=== PATIENT | female | born 1945 | race Caucasian/White ===

== ENCOUNTER 2018-07-08 09:58 | Day surgery (SDC) | payer OTHER, BC ==
[2018-06-11 12:29] VITALS: BMI 31.6
--- NOTE | 2018-06-23 11:08 | HP ---
DATE OF ADMISSION: 07/08/2018 DATE OF DICTATION: 06/02/2018 REASON FOR ADMISSION: Biliary disease. BRIEF HISTORY: This is a 72-year-old female who presented to the office for evaluation a cholecystectomy. What prompted her workup was a routine blood panel, done due to her other medical co-morbidities, by her primary care physician, and on that panel she was noted to have a mildly elevated AST and an ALT (AST 78/ALT 74). Given that abnormality, she underwent an ultrasound, performed at [facility]. The ultrasound demonstrated a gallstone, fatty liver, and a focal mass-like density in the fundus of the gallbladder that was 1.5 cm in size. It could not be determined whether this was gallbladder related or liver related. She then underwent a CT for the ultrasound finding. The CT demonstrated a phrygian cap, gallstones, no other abnormalities in the liver to be noted. She is noted to have diffuse fatty infiltration of the liver, however. She is also noted to have a lipoma in the anterior abdominal wall, which was a nonspecific finding seen on ultrasound of the abdominal wall. No other significant findings on CAT scan. Patient has no acute history of biliary disease. She has a chronic history of greater than 10 years of having bilateral costal margin pain with radiation to the back. She has had no nausea, no vomiting, no change in bowel habits. She has chronic peptic ulcer disease, reflux, and so forth. PAST MEDICAL HISTORY: Significant for peptic ulcer disease, reflux, coronary artery disease, hypertension, stroke. She is diabetic. PAST SURGICAL HISTORY: The patient denies abdominal surgeries. ALLERGIES: To SULFA. MEDICATIONS: Crestor, Trulicity, escitalopram, Lexapro. SOCIAL HISTORY: Patient does not smoke. She does not drink. PHYSICAL EXAMINATION: HEENT: Unremarkable. Abdomen: Obese, soft, nontender, nondistended. She has tenderness along both costal margins equally. She has no CVA tenderness. IMPRESSION/PLAN: Cholelithiasis, questionable finding in the wall of the gallbladder, bilateral subcostal pain: This is a 72-year-old female who presented to the office for further evaluation of her biliary disease. I think the finding of gallstones is an incidental finding and not related to the cause of her subcostal margin pain. The abnormality noted on the LFTs I also feel is not entirely related to the biliary disease, however, cannot be entirely ruled out. Given the fact that she is on statins and certain medications, I think the mild bump in the LFTs could be related to the fatty liver or even her medications. At this point, I would recommend repeating the LFTs. If they are normal, she can then proceed with surgical intervention for cholecystectomy; if they are abnormal, they should be further evaluated by her primary care physician or the spreader operator automatic. With regard to her gallbladder, since I think the finding of gallstones is incidental and she is not symptomatic, I would typically not recommend a cholecystectomy in this setting; however, she is noted to have a mass-like density in the fundus of the gallbladder and the etiology of this cannot be entirely determined; therefore, she should undergo a cholecystectomy for this morphologic finding. There is a small chance that this could be a carcinoma, even though unlikely. I spent 1 hour plus discussing this with the patient and her to ensure that they understand the indication for surgery ultimately of the gallbladder is not related to the mild bump in her transaminases but really because of the morphologic finding on ultrasound. The indications, alternatives, and complications of this procedure have been discussed at length, questions have been answered. Will plan to obtain written consent the day of surgery. Shay HUDDLESTON [id number] cc: [place] [address]
[~2018-07-08 09:58] MED LIST: ALBUTEROL SO4 8 GM HFA INHALER IH PRN; ONDANSETRON 4 MG/2 ML VIAL IVPUSH PRN; morphine SULFATE 4 MG/ML VIAL IVPB PRN
[2018-07-08] MEDS ORDERED: ESCITALOPRAM OXALATE 10 MG TABLET (FP) PO SCH (10:00)
[2018-07-08] MEDS ORDERED: ROCURONIUM BROMIDE 50 MG/5 ML VIAL ONE ×2 (11:27→11:44)
[2018-07-08] MEDS ORDERED: MIDAZOLAM HCL 2 MG/2 ML SINGLE DOSE VIAL ONE (11:27)
[2018-07-08] MEDS ORDERED: LIDOCAINE HCL/PF 2% SDV 5ML VIAL ONE (11:27)
[2018-07-08] MEDS ORDERED: PROPOFOL 20 ML ONE (11:27)
[2018-07-08] MEDS ORDERED: ePHEDrine SULFATE 50 MG/1 ML AMPULE ONE (11:46)
[2018-07-08] MEDS ORDERED: DEXAMETHASONE SOD PHOSPHATE 4 MG/1 ML VIAL ONE (11:48)
[2018-07-08] MEDS ORDERED: ERTAPENEM SODIUM 1 GM VIAL ONE (11:56)
[2018-07-08] MEDS ORDERED: NEOSTIGMINE METHYLSULFATE 0.5 MG/ML - 10 ML MDV ONE ×2 (12:25→13:01)
[2018-07-08] MEDS ORDERED: GLYCOPYRROLATE 0.2 MG/1 ML VIAL ONE (12:26)
[2018-07-08] MEDS ORDERED: ONDANSETRON 4 MG/2 ML VIAL ONE (13:24)
[2018-07-08] MEDS ORDERED: LACTATED RINGERS SOLUTION 1,000 ML IV SCH (13:30)
[2018-07-08] MEDS ORDERED: ALBUTEROL SO4 2.5/IPRATROPIUM 0.5 INH SOL 3 ML VIAL.NEB. NEB ONE (13:31)
[2018-07-08] MEDS ORDERED: IPRATROPIUM BR 0.02% 0.5 MG/2.5 ML VIAL.NEB. NEB ONE (13:33)
[2018-07-08] MEDS ORDERED: ALBUTEROL SO4 0.083% IH SOL 2.5 MG/3 ML VIAL.NEB. NEB ONE (13:34)
[2018-07-08] MEDS: HYDROCHLOROTHIAZIDE 25 MG TABLET (FP) PO SCH (16:37)
[2018-07-08] MEDS: D5-1/2NS+20 MEQ KCL - 20 MEQ/1,000 ML INFUS.BAG IV SCH (16:37)
[2018-07-08] MEDS: PANTOPRAZOLE 40 MG TABLET (FP) PO SCH (16:38)
[2018-07-08] MEDS: oxyCODONE HCL 5 MG TABLET PO PRN (16:51)
[2018-07-08] MEDS ORDERED: ZOLPIDEM TARTRATE 5 MG TABLET PO PRN (22:00)
[2018-07-08] MEDS ORDERED: PATIENT'S OWN MEDICATION (NON-FORMULARY) (Zolpidem Tartrate [Ambien] 10 MG) PO SCH (22:00)
[2018-07-09] MEDS: ACETAMINOPHEN 325 MG TABLET (FP) PO PRN ×2 (00:09→05:06)
[2018-07-09] MEDS: oxyCODONE HCL 5 MG TABLET PO PRN ×2 (00:10→07:12)
[2018-07-09] MEDS ORDERED: ENOXAPARIN NA (PORCINE) 40 MG/0.4 ML DISP.SYRIN SQ SCH (06:00)
[2018-07-09] MEDS: D5-1/2NS+20 MEQ KCL - 20 MEQ/1,000 ML INFUS.BAG IV SCH (09:43)
[2018-07-09] MEDS: HYDROCHLOROTHIAZIDE 25 MG TABLET (FP) PO SCH ×2 (09:44→09:50)
[2018-07-09] MEDS: PANTOPRAZOLE 40 MG TABLET (FP) PO SCH (09:45)
[2018-07-09] MEDS: LISINOPRIL 20 MG TABLET (FP) PO SCH ×2 (09:45→09:55)
[2018-07-09] MEDS ORDERED: ESCITALOPRAM OXALATE 10 MG TABLET (FP) PO SCH (10:00)
[2018-07-09] MEDS ORDERED: ROSUVASTATIN CA 20 MG TABLET (FP) PO SCH (10:00)
[2018-07-09 15:03] VITALS: BP 102/43; PULSE 61; TEMP 98.2
--- NOTE | 2018-07-09 15:22 | HP ---
DATE OF ADMISSION: 07/08/2018 REASON FOR ADMISSION: Patient admitted today for a laparoscopic cholecystectomy. PAST MEDICAL HISTORY: Significant for peptic ulcer disease, reflux, coronary artery disease, hypertension, stroke, and diabetes. PAST SURGICAL HISTORY: None. ALLERGIES: To SULFA. SOCIAL HISTORY: Patient does not smoke, nor drink. MEDICATIONS: Crestor, Trulicity, Lexapro. PHYSICAL EXAMINATION: HEENT: Unremarkable Abdomen: Obese, soft, nontender, nondistended. IMPRESSION/PLAN: Cholelithiasis. Patient is here today for laparoscopic cholecystectomy. History of bilateral subcostal pain essentially unchanged. Patient will have nothing to do for this at this point. The indications, alternatives, and complications of the procedure were discussed. Questions answered. We will plan to obtain written consent, as well. Shay HUDDLESTON [id number] cc: Ladarius Mensah MD, Vladimir Meyers MD
--- NOTE | 2018-07-13 13:44 | OP ---
DATE OF OPERATION: 07/08/2018 PREOPERATIVE DIAGNOSIS: Abnormal gallbladder, cholelithiasis. POSTOPERATIVE DIAGNOSIS: Abnormal gallbladder, cholelithiasis. PROCEDURE: Laparoscopic cholecystectomy, resection portion of liver, and peritoneal lavage. SURGEON: James Valencia MD ROLL CUTTING OPERATOR: Arden Brandt MD ANESTHESIA: Kerwin Bai MD (general), ESTIMATED BLOOD LOSS: Minimal. SPECIMEN: Gallbladder and portion of liver. INDICATIONS/PROCEDURE: This is a patient, who has an abnormal gallbladder. She has some nonspecific findings in the region of the dome. She also is noted to have cholelithiasis. She is here today for a laparoscopic cholecystectomy. Please refer to my H and P for complete details. Patient was identified and appropriately positioned on the operating room table. After placement of general anesthesia, the abdomen was prepped and draped in the usual sterile fashion with ChloraPrep. An infraumbilical incision was made deep in the subcutaneous tissues. The fascia was divided sharply, the peritoneum incised, and under direct vision, a Veress needle followed by a structural needle were placed. The remaining 3 ports placed under direct vision, as well. Upon placement of the scope, the gallbladder dome had abnormal finding of what looked like a bunch of cysts, but these cysts were interlaced cysts with the dome of the gallbladder as well as the liver bed. The gallbladder reflected over the dome of the liver in standard fashion going from lateral to medial. The neck and infundibulum of the gallbladder identified followed by the cystic duct. The cystic duct circumferentially isolated, clipped and then divided. The cystic artery identified more medially and posteriorly. It was subsequently isolated, clipped, and then divided as well. The gallbladder itself was removed from the liver bed with electrocautery. Prior to complete removal, the liver bed was irrigated, the operative field noted to be hemostatic, and at this point, near the dome, the 2 structures, the cystic portion of the dome of the gallbladder was intimately part of the liver. Therefore, a portion of the liver was resected along with the gallbladder to keep this intact. This was done sharply. Hemostasis was achieved with the cautery as needed. The specimen was placed in an EndoCatch bag and brought through the umbilical incision. The fascia at the umbilicus was reapproximated with interrupted 0 Vicryl suture. Port sites were all closed with 4-0 subcuticular Biosyn as well as the incision at the umbilicus. At the conclusion of this case, sponge and instrument counts were correct. ATTESTATION: Brief operative note handwritten on the preprinted form. [facility] queried prior to giving any narcotics. JAMES VALENCIA M.D. [id number]
--- NOTE | 2018-07-13 14:10 | PATH ---
Surgical Pathology Report Patient Name: CLAUDE HUNT Med. Rec. 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 CHRONIC CHOLECYSTITIS. PORTION OF LIVER WITH MODERATE STEATOSIS (~30%). ONE BENIGN PERICYSTIC LYMPH NODE (0/1). Comment: The neoplasm is multiloculated, lined by a single layer of epithelium, partially mucinous, without significant cytologic atypia. Focal papillary fronds are noted. No mesenchymal/ovarian-type stroma, necrosis, or stromal invasion identified. Overall findings are consistent with a benign biliary cystadenoma. Electronically Signed Jesusita Cummings M.D. Gross Description Received in formalin, labeled "portion of liver and gallbladder," is a 7.5 x 3.2 x 2.6 cm. gallbladder with a 0.2 cm. in length portion of cystic duct attached. The outer surface is alcazar green with a small portion of liver bed attached at the fundus. The lumen contains green, tenacious bile. There are no choleliths identified. The mucosa is green and velvety. The fundus displays a 1.6 x 1.5 x 1.5 cm cystic mass. The wall of the gallbladder measures 0.1 cm. in thickness. One pericystic lymph node measuring 0.9 cm identified. The entire specimen is submitted in 16 cassettes as follows: 1-cystic duct margin and promotional representative mucosa; 2-5-fundic mass; 6-liver; 7- pericystic lymph node; 8-16- remainder of gall bladder. /07/09/2018 [facility]07/09/2018
== END 2018-07-09 14:50 | disposition home or self-care (01) ==
LOC: FASUSAT 09:58 → FM/S 16:40 → FASUSAT 07-09 14:50
PROVIDERS: ATTEND Surgery
PROC: 0FB04ZZ Excision of Liver, Percutaneous Endoscopic Approach (ICD-10-PCS; 2018-07-08)
PROC: 0FT44ZZ Resection of Gallbladder, Percutaneous Endoscopic Approach (ICD-10-PCS; principal; 2018-07-08 11:59)
DX: K80.20 Calculus of gallbladder without cholecystitis without obstruction (principal); R93.2 Abnormal findings on diagnostic imaging of liver and biliary tract; I10 Essential (primary) hypertension; I25.10 Atherosclerotic heart disease of native coronary artery without angina pectoris; E11.9 Type 2 diabetes mellitus without complications; K21.9 Gastro-esophageal reflux disease without esophagitis; E66.9 Obesity, unspecified; Z68.31 Body mass index [BMI] 31.0-31.9, adult; Z86.73 Personal history of transient ischemic attack (TIA), and cerebral infarction without residual deficits; Z88.2 Allergy status to sulfonamides
CPT/HCPCS: 82962; 88304-TC; 94760

== ENCOUNTER 2022-03-25 11:08 | Day surgery (SDC) | payer OTHER, BC ==
[2022-03-22 15:10] VITALS: BMI 24.0
[2022-03-25 14:58] VITALS: RESP 18; TEMP 98
[2022-03-25 15:00] VITALS: BP 130/70; PULSE 75
== END 2022-03-25 13:52 | disposition home or self-care (01) ==
LOC: FASU-ENDO 11:08
PROVIDERS: ATTEND Internal Medicine Gastroenterology
PROC: 0DB68ZX Excision of Stomach, Via Natural or Artificial Opening Endoscopic, Diagnostic (ICD-10-PCS; 2022-03-25)
PROC: 0DB48ZX Excision of Esophagogastric Junction, Via Natural or Artificial Opening Endoscopic, Diagnostic (ICD-10-PCS; 2022-03-25)
PROC: 0DB98ZX Excision of Duodenum, Via Natural or Artificial Opening Endoscopic, Diagnostic (ICD-10-PCS; principal; 2022-03-25 12:54)
DX: K29.50 Unspecified chronic gastritis without bleeding (principal); K21.00 Gastro-esophageal reflux disease with esophagitis, without bleeding; R63.4 Abnormal weight loss; R12 Heartburn
CPT/HCPCS: 82962; 88305-TC; 88342-TC

== ENCOUNTER 2023-05-19 11:17 | Emergency (ER) | payer OTHER, BC ==
[2023-05-19 11:37] VITALS: BP 108/56; PULSE 72; RESP 18; TEMP 97.9; BMI 27.4
[2023-05-19 13:04] LABS: HEMATOCRIT 41.8 % (32.4-45.2); MCH 31.6 pg (25.7-33.7); MCHC 33.5 g/dl (32.0-36.0); MEAN CELL VOLUME 94.3 fl (80-96); MEAN PLT VOLUME 8.6 fl (7.5-11.1); PLATELET COUNT 158.8 10^3/uL (134-434); RBC 4.43 10^6/uL (3.60-5.2); WHITE BLOOD COUNT 8.4 10^3/uL (4.0-10.8)
[2023-05-19 13:17] LABS: ALBUMIN 4.3 g/dl (3.4-5.0); BILIRUBIN,TOTAL 0.9 mg/dl (0.2-1); CALCIUM 9.6 mg/dl (8.5-10.1); CREATININE 0.8 mg/dl (0.6-1.3); POTASSIUM 3.8 mmol/L (3.5-5.1); TOT PROT 6.4 g/dl (6.4-8.2)
[2023-05-19] MEDS ORDERED: IBUPROFEN 400 MG TABLET (FP) PO ONE ×2 (13:18→13:35)
[2023-05-19 14:22] LABS: PLATELET ESTIMATE ADEQUATE
== END 2023-05-19 13:41 | disposition home or self-care (01) ==
LOC: FER 11:17
DX: S82.402A Unspecified fracture of shaft of left fibula, initial encounter for closed fracture (principal); M25.562 Pain in left knee; M54.2 Cervicalgia; R53.1 Weakness; W01.0XXA Fall on same level from slipping, tripping and stumbling without subsequent striking against object, initial encounter
CPT/HCPCS: 36415; 70450-TC; 72125-TC; 73610-TC-LT-FY; 73630-TC-LT; 80053; 85027; 99285-25